=== PATIENT | male | born 1980 | race Two or more races ===

== ENCOUNTER 2025-01-09 06:15 | Emergency (ER) | payer MEDICARE, MEDICAID, SELFPAY ==
[2025-01-09 06:26] VITALS: BMI 52.0
[2025-01-09 06:39] VITALS: BP 172/118; PULSE 75; RESP 18; TEMP 36.7; O2SAT 98
--- NOTE | 2025-01-09 07:21 | EDNOTE_ITS ---
<Statement entered by Caitie García MD - 01/31/25 06:19> As co-signing physician, I was present and available for consult prn. I concur with the plan and care as documented by the midlevel provider. ED Dental RME/HPI General Chief complaint: Dental/Oral/Throat Stated complaint: THROAT PAIN Time Seen by Provider: 01/09/25 06:40 Arrival date/time: 01/09/25 06:15 We use irrigation district manager to obtain information from patient. This is a 44-year-old male that comes to the emergency room with complaints of throat pain. Patient is deaf and requires an irrigation district manager. Patient states that yesterday she got off work and his throat felt funny. Patient states he did not feel ill he did not feel pain they felt like his throat felt funny. This morning he woke up and he felt like there is something swollen in his throat. Patient reports that he looked into his throat and his uvula was swollen. Patient states he otherwise does not feel sick. Patient is blood pressure is elevated upon arrival. Patient has no other complaints Related Data Previous Rx's ?Medication ?Instructions ?Recorded Promethazine/Codeine SYRUP * 2.5 ml PO Q4HR #40 mL (PHENERGAN WITH CODEINE SYRUP *) hydrocodone 5 mg-acetaminophen 325 1 tab PO TID PRN pa in #8 tabs 01/19/22 mg tablet ibuprofen 600 mg tablet 600 mg PO TID PRN pain #14 t abs 01/19/22 amoxicillin 875 mg-potassium 1 tab PO BID #14 tabs clavulanate 125 mg tablet ibuprofen 800 mg tablet 800 mg PO TID PRN pain #30 t abs 12/28/22 ibuprofen 800 mg tablet 800 mg PO Q8H PRN pain #20 t abs 09/20/23 Allergies Allergy/AdvReac Type Severity Reaction Status Date / Time No Known Allergies Allergy Mild Verified 01/09/25 06:30 Review of Systems Review of Systems Systems Reviewed: All systems reviewed, normal except as documented Past Medical History Past Medical History CARDIAC: Positive Hypercholesterolemia and Hypertension; Negative Cardiac Disorders or Congestive Heart Failure RESPIRATORY: Negative Chronic Obstructive Pulmonary Disease (COPD) or Asthma GENITOURINARY: Negative Renal Disease ENT: Positive Deafness ENDOCRINE: Negative Diabetes Mellitus Type 1 or Diabetes Mellitus Type 2 HEMATOLOGIC: Negative Sickle Cell Disease Social History SMOKING STATUS: Never smoker ED Exam Narrative Physical exam: VITAL SIGNS: Reviewed. GENERAL APPEARANCE: Alert and interactive, follows commands, no acute distress, HEAD AND FACE: Non-traumatic. ENT: PERRL, conjuctiva pink and clear, eyelid no trauma, Mucous membrane moist. Uvula appears midline and appears swollen Mildly erythematous tissue surrounding uvula does not appear to be erythemic. NECK: Supple, nontender, no nuchal rigidity. CHEST: No tenderness, no crepitus, no paradoxical movement, no retractions. LUNGS: Clear, well ventilated, symmetric, no rales, no wheezing, no rhonchi, no stridor, good breath sounds bilaterally. HEART: Regular rate, regular rhythm, no murmur, no gallops. ABDOMEN: Soft, nondistended, no guarding, nontender, no rebound, no masses, NEUROLOGICAL: Gross motor function intact sensory function intact, Appropriate for age. MUSCULOSKELETAL: low back nontender, full range of motion. EXTREMITIES: No redness no swelling no skin breakdown on bilateral foot and leg. Distal neurovascular status intact bilateral foot SKIN: Color pink, dry, no rash, no lacerations, no abrasions, no contusions. Course Quality Measures none Orders Category Date Time Status Certified Medical Dosimetrist Q4H START 00 Care 01/09/25 07:18 Completed Strep A Rapid Stat Lab 01/09/25 09:16 Completed EPINEPHrine Rt Leydi [Racemic Epi Rt Leydi] Med 01/09/25 07:18 Discontinued 0.5 ml INH X1 ONE Sodium Chloride Rt Leydi 0.9% [NS Rt Leydi 0.9%] Med 01/09/25 07:18 Discontinued 3 ml INH PRN PRN predniSONE Med 01/09/25 07:36 Discontinued 60 mg PO X1 ONE Vital Signs Vital signs: Vital Signs Temperature 98.1 F 01/09/25 06:39 Pulse Rate 75 01/09/25 06:39 Respiratory Rate 18 01/09/25 06:39 Blood Pressure 172/118 H 01/09/25 06:39 Pulse Oximetry (%) 98 01/09/25 06:39 Oxygen Delivery Method Room Air 01/09/25 06:39 Dental / Oral MDM Narrative MDM Narrative:: We placed patient on shear tender. Monitor patient for couple hours after racemic epi given. Patient was also given 60 mg of steroids. Patient eating and drinking. Patient was eating a sandwich. I used government services professional line patient states he is feeling better. Assessed patient's uvula and it does appear to be less swollen. Patient feels better at this time. I explained to patient at length. I wanted him rechecked in 1 to 2 days. I explained to patient that I d o not know why the list got swollen. I explained to him that it could be a viral illness. We did check him for strep and it was negative. Patient signs that he does not feel sick. I explained to him that I would prescribe him steroids for the next 5 days and I wanted to make sure someone checked him in the next 24 to 48 hours. Patient was able to sign into government services professional that he understood. Patient explained to that he to come back to the emergency room if symptoms change or worsen bAeon dictation: Although this document has been carefully reviewed, there may still be some phonetic and other typographical errors. These errors are purely grammatical due to imperfections in the software program and should not be construed in any way to compromise the substance of the patient's medical care during this visit. Patient data External records reviewed:: [facility] previous records Clinical information provided by:: patient Social determinants that could affect healthcare access:: none Patient has the following chronic illnesses:: none How is presenting disease/condition affected by chronic disease/condition?: no chronic disease Evaluation data The following diagnostics were reviewed and interpreted by me:: lab results Lab and/or radiology exams considered but not ordered:: see note Interpretation Summary: see note Medications / Prescriptions Medications or Prescriptions considered but not ordered:: none Medication administrations:: Medication Administration History Discontinued Medications Epinephrine (Epinephrine Rt Leydi 0.5 Ml Nebu) 0.5 ml INH X1 ONE Stop: 01/09/25 07:19 Last Admin: 01/09/25 08:28 Dose: 0.5 ml Documented By: SHIRLEY Prednisone (Prednisone 20 Mg Tablet) 60 mg PO X1 ONE Stop: 01/09/25 07:37 Last Admin: 01/09/25 09:05 Dose: 60 mg Documented By: LAVINIA Sodium Chloride (Sodium Chloride Rt Leydi 0.9% 3 Ml Nebu) 3 ml INH PRN PRN PRN Reason: SOLN Stop: 02/08/25 07:17 Last Admin: 01/09/25 08:28 Dose: 3 ml Documented By: SHIRLEY see mar Consultations Consultation(s) initiated? (list below): No Diagnosis Most likely diagnosis given after review of the tests above:: uvula swelling Admission Indicated Admission indicated?: not indicated Admission Request Was there a request for admission?: No Disposition Plan Disposition Plan: Discharge Discharge Attestation Discharge Attestation: The patient and all family members were given an opportunity to ask questions and understood the discharge instructions. Discharge instructions specifically effects, indications for sooner follow up or return to the emergency department, and the expected course of current diagnosis. Patient condition: Stable Discharge Plan Plan Patient Disposition: HOME (Self Care) Patient condition on transfer: Stable Prescriptions/Referrals Prescriptions/Med Rec: No Action Promethazine/Codeine SYRUP * (PHENERGAN WITH CODEINE SYRUP *) 120 ML syrup 2.5 ml PO Q4HR Qty: 40 0RF hydrocodone-acetaminophen 5-325 mg tablet 1 tab PO TID MDD 3 PRN (Reason: pain) Qty: 8 0RF ibuprofen 600 mg tablet 600 mg PO TID PRN (Reason: pain) Qty: 14 0RF amoxicillin-pot clavulanate 875-125 mg tablet 1 tab PO BID Qty: 14 0RF ibuprofen 800 mg tablet 800 mg PO TID PRN (Reason: pain) Qty: 30 0RF ibuprofen 800 mg tablet 800 mg PO Q8H PRN (Reason: pain) Qty: 20 0RF Referrals: Michael Bueno MD [Primary Care Provider, Family Practice] - In 1 week Problem List Clinical Impression: Uvular swelling Patient/Caregiver Discharge Instructions Discharge Activity: activity as tolerated Education Materials: Parts of the Mouth Additional Instructions: Please make an appointment with primary provider in 1 to 2 days. [place] to the emergency room symptoms change or worsen. Print Language: Sign Language Stand Alone Forms: [place] Award Info., Patient Portal Info Letter PA/GAMMA OPERATOR Supervising Physician PA/NOELLE Supervising Physician: zoya
[2025-01-09 08:02] VITALS: BP 143/98; PULSE 75; RESP 16; TEMP 36.9; O2SAT 97
[2025-01-09] MEDS: EPINEPHrine RT SOL 0.5 ML NEBU INH (08:28)
[2025-01-09] MEDS: SODIUM CHLORIDE RT SOL 0.9% 3 ML NEBU INH (08:28)
[2025-01-09 08:34] VITALS: PULSE 74; RESP 20; O2SAT 100
--- NOTE | 2025-01-09 09:00 | PC.NURSE ---
PT IN TODAY FOR SORE THROAT SINCE YESTERDAY, LAST NIGHT. THIS MORNING PT STATES THAT HE WAS SPITTING UP A LOT OF MUCUS. 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
[2025-01-09 09:52] LABS: Strep A Rapid Negative (Negative)
[2025-01-09 10:34] VITALS: BP 137/94; PULSE 85; RESP 16; TEMP 36.7; O2SAT 98
[2025-01-09 11:50] VITALS: BP 134/92; PULSE 99; O2SAT 96
== END 2025-01-09 11:52 | disposition home or self-care (01) ==
PROVIDERS: Nurse Practitioner Family; Emergency Provider Emergency Medicine; PCP Family Medicine
DX: H91.90 Unspecified hearing loss, unspecified ear (principal)
CPT/HCPCS: 87651; 94640; 99283; J7512